=== PATIENT | female | born 1960 ===

== ENCOUNTER 2023-06-25 03:57 | Day surgery (SDC) | payer OTHER ==
[2023-06-21 13:28] VITALS: BMI 28.0
[2023-06-25] MEDS ORDERED: MIDAZOLAM HCL 2 MG/2 ML SINGLE DOSE VIAL ONE (07:29)
[2023-06-25] MEDS ORDERED: SUCCINYLCHOLINE CHLORIDE 200 MG/10 ML SYRINGE ONE (07:29)
[2023-06-25] MEDS ORDERED: PROPOFOL 20 ML ONE ×3 (07:29→08:09)
[2023-06-25] MEDS ORDERED: IBUPROFEN 600 MG TABLET (FP) PO PRN (08:36)
[2023-06-25] MEDS ORDERED: IBUPROFEN 800 MG/8 ML IJ IVPB PRN (08:36)
[2023-06-25] MEDS ORDERED: oxyCODONE HCL 5 MG TABLET PO PRN (08:36)
[2023-06-25] MEDS ORDERED: ONDANSETRON 4 MG/2 ML VIAL IVPUSH PRN (08:36)
[2023-06-25] MEDS ORDERED: LACTATED RINGERS SOLUTION 1,000 ML IV SCH (08:45)
[2023-06-25] MEDS ORDERED: ELECTROLYTE-148 SOLN 1,000 ML IV SCH (08:45)
[2023-06-25] MEDS ORDERED: ONDANSETRON 4 MG/2 ML VIAL ONE (08:57)
[2023-06-25 11:17] VITALS: BP 119/79; PULSE 76; RESP 20; TEMP 98
== END 2023-06-25 11:18 | disposition home or self-care (01) ==
LOC: JASU-SURG 03:57
PROVIDERS: ATTEND Obstetrics & Gynecology
PROC: 0UB98ZZ Excision of Uterus, Via Natural or Artificial Opening Endoscopic (ICD-10-PCS; principal; 2023-06-25 07:30)
DX: N95.0 Postmenopausal bleeding (principal); D25.0 Submucous leiomyoma of uterus
CPT/HCPCS: 86850; 86900; 86901; 88305-TC; 94760